=== PATIENT | male | born 1970 | race Hispanic/Latino ===

== ENCOUNTER → 2020-09-09 | Outpatient (CLI) | payer OTHER ==
[~2020-09-09] VITALS: Ht 162.6 cm; Wt 109.3 kg
[~2020-09-09] MED LIST: REGADENOSON 0.4 MG/5 ML PF SYG IVP SCH
== END | disposition home or self-care (01) ==
LOC: SHCH 07:59
PROVIDERS: ATTEND Internal Medicine Cardiovascular Disease
DX: R06.02 Shortness of breath (principal)
CPT/HCPCS: 78452; 93017; 96374; A9500 ×2

== ENCOUNTER → 2020-11-10 | Outpatient (CLI) | payer SELFPAY | END | disposition home or self-care (01) | LOC: OIH 10:49 | PROVIDERS: ATTEND Internal Medicine Cardiovascular Disease | DX: Z13.6 Encounter for screening for cardiovascular disorders (principal) | CPT/HCPCS: 75571 ==

== ENCOUNTER → 2024-07-02 | Outpatient (CLI) | payer BC ==
[2024-07-02 12:31] LABS: BASOPHILS # (AUTO) 0.12 K/uL (0.00-0.20); BASOPHILS % (AUTO) 1.5 % (0.0-5.0); EOSINOPHILS # (AUTO) 0.32 K/uL (0.00-0.70); EOSINOPHILS % (AUTO) 3.9 % (0.0-8.0); HEMATOCRIT 37.5 % (42-54); LYMPHOCYTES # (AUTO) 2.7 K/uL (1.0-4.8); LYMPHOCYTES % (AUTO) 33.7 % (21.0-51.0); MEAN CORPUSCULAR HEMOGLOBIN 29.9 pg (27.0-33.0); MEAN CORPUSCULAR HGB CONC 32.8 g/dL (32.0-36.0); MONOCYTES # (AUTO) 0.7 K/uL (0.1-1.0); MONOCYTES % (AUTO) 8.6 % (3.0-13.0); NEUTROPHILS # (AUTO) 4.1 K/uL (1.8-7.7); NEUTROPHILS % (AUTO) 49.8 % (40.0-77.0); PLATELET COUNT (AUTO) 372 K/uL (130-400); RED BLOOD CELL COUNT(AUTO) 4.12 MIL/uL (4.50-6.20); RED CELL DISTRIBUTION WIDTH 13.1 % (11.0-15.5); WHITE BLOOD COUNT (AUTO) 8.1 K/uL (4.8-10.8)
[2024-07-02 13:02] LABS: ALBUMIN 3.3 g/dL (3.5-5.0); BILIRUBIN,TOTAL 0.5 mg/dL (0.2-1.0); CREATININE 0.6 mg/dL (0.5-1.3); POTASSIUM 3.7 mmol/L (3.5-5.1); TOTAL PROTEIN, SERUM 7.4 g/dL (6.0-8.3)
== END | disposition home or self-care (01) ==
LOC: LAB 10:34
PROVIDERS: ATTEND Internal Medicine Cardiovascular Disease
DX: I10 Essential (primary) hypertension (principal); R35.0 Frequency of micturition; E78.2 Mixed hyperlipidemia
CPT/HCPCS: 36415; 80053; 80061; 84153; 85025

== ENCOUNTER → 2024-07-07 | Outpatient (CLI) | payer BC ==
[2024-07-07 16:28] LABS: % IRON SATURATION 19.5 % (30-44)
== END | disposition home or self-care (01) ==
LOC: LAB 11:22
PROVIDERS: ATTEND Internal Medicine Cardiovascular Disease
DX: E61.1 Iron deficiency (principal); D64.9 Anemia, unspecified; E78.5 Hyperlipidemia, unspecified; R07.9 Chest pain, unspecified; R06.09 Other forms of dyspnea
CPT/HCPCS: 36415; 82270; 82728; 83540; 83550

== ENCOUNTER → 2024-07-08 | Outpatient (CLI) | payer BC ==
[2024-07-08 16:15] LABS: BASOPHILS # (AUTO) 0.25 K/uL (0.00-0.20); BASOPHILS % (AUTO) 2.3 % (0.0-5.0); EOSINOPHILS # (AUTO) 0.36 K/uL (0.00-0.70); EOSINOPHILS % (AUTO) 3.3 % (0.0-8.0); IMMATURE GRANULOCYTE ABSOLUTE 0.04 K/uL (0-1); LYMPHOCYTES # (AUTO) 3.9 K/uL (1.0-4.8); LYMPHOCYTES % (AUTO) 35.4 % (21.0-51.0); MEAN CORPUSCULAR HEMOGLOBIN 29.7 pg (27.0-33.0); MONOCYTES # (AUTO) 0.7 K/uL (0.1-1.0); MONOCYTES % (AUTO) 6.3 % (3.0-13.0); NEUTROPHILS # (AUTO) 5.8 K/uL (1.8-7.7); NEUTROPHILS % (AUTO) 52.3 % (40.0-77.0); PLATELET COUNT (AUTO) 405 K/uL (130-400); RED BLOOD CELL COUNT(AUTO) 4.41 MIL/uL (4.50-6.20); RED CELL DISTRIBUTION WIDTH 13.3 % (11.0-15.5); WHITE BLOOD COUNT (AUTO) 11.1 K/uL (4.8-10.8)
== END | disposition home or self-care (01) ==
LOC: LAB 15:20
PROVIDERS: ATTEND Internal Medicine Cardiovascular Disease
DX: D64.9 Anemia, unspecified (principal)
CPT/HCPCS: 36415; 85025

== ENCOUNTER 2025-02-24 23:44 | Emergency (ER) | payer BC ==
[~2025-02-24] VITALS: Ht 162.6 cm; Wt 114.3 kg
[2025-02-25 00:25] LABS: CREATININE 1.0 mg/dL (0.5-1.3); GLOMERULAR FILTR. RATE CALC 88.0 mL/min (>90); GLUCOSE,RANDOM 105.0 mg/dL (70-105); SODIUM SERUM 141.0 mmol/L (136-145); UREA NITROGEN, BLOOD 18.0 mg/dL (7-18)
[2025-02-25] MEDS: 0.9%NACL 1000ML 1,000 ML IV ONE (00:26)
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
[2025-02-25 00:33] LABS: CREATINE KINASE, TOTAL 107.0 U/L (21-232)
[2025-02-25 00:36] LABS: INR 0.98 (0.85-1.15)
[2025-02-25 00:37] LABS: IMMATURE GRANULOCYTE ABSOLUTE 0.05 K/uL (0-1); NUCLEATED RED BLOOD CELLS 0.0 % (0.0-0.19); PLATELET COUNT (AUTO) 304 K/uL (130-400); RED BLOOD CELL COUNT(AUTO) 4.62 MIL/uL (4.50-6.20); RED CELL DISTRIBUTION WIDTH 13.4 % (11.0-15.5); WHITE BLOOD COUNT (AUTO) 10.3 K/uL (4.8-10.8)
[2025-02-25] MEDS ORDERED: IOHEXOL-350 75 ML VIAL IV ONE (01:50)
--- NOTE | 2025-02-25 02:34 | HMCIMG ---
EXAM: CR Chest, 1 view CLINICAL HISTORY: Shortness of breath. COMPARISON: None provided. FINDINGS: The lungs show no infiltrates or other acute findings. No pleural effusion or pneumothorax. Mildly enlarged cardiac silhouette. No acute osseous abnormality. IMPRESSION: Mildly enlarged cardiac silhouette could be secondary to AP projection. No acute infiltrate, effusion, or pneumothorax. /[place]
--- NOTE | 2025-02-25 03:33 | HMCIMG ---
EXAM: CTA examination of the chest CLINICAL HISTORY: Rule out an aneurysm. TECHNIQUE: Pre and post-contrast thin collimated axial CTA images of the chest were obtained, with sagittal and coronal reformatted images also submitted. CT scan is done according to ALARA (As Low as Reasonably Achievable). COMPARISON: None provided. FINDINGS: Symmetrical dependent atelectasis in the bilateral posterior basal lungs. No acute infiltrate, effusion, pneumothorax, or mass. No pericardial effusion. The heart size is within normal limits. Mild calcific atherosclerotic disease in the aortic arch. No thoracic aortic aneurysm is evident. The pulmonary artery is normal in caliber without a filling defect or pulmonary thromboembolism. Mildly prominent pericardial fat pad. No axillary, supraclavicular, or mediastinal lymphadenopathy. No focal thyroid abnormality. Limited views of the upper abdomen demonstrate mild fatty liver. No acute or suspicious osseous abnormality. IMPRESSION: No thoracic aortic aneurysm. No pulmonary thromboembolism. No acute cardiopulmonary process. Mildly prominent pericardial fat pad. /[place]
[2025-02-25 04:40] VITALS: BP 124/72; PULSE 90; RESP 14; TEMP 98; O2SAT 97
--- NOTE | 2025-02-25 04:42 | NUR ---
PATIENT REFUSED TO BE ADMITTED TO HOSPITAL, STATED HE WOULD RATHER GO HOME SINCE HE HAS DOGS AT HOME. ED MD AT BEDSIDE. PATIENT WAS EDUCATED ON AND VERBALIZED UNDERSTANDING OF THE RISKS AND CONSEQUENCES INVOLVED IN LEAVING THE HOSPITAL AT THIS TIME, INCLUDING , THE BENEFITS OF CONTINUED TREATMENT AND HOSPITILIZATION. AMA FORM SINGED BY PATIENT. PATIENT ADVICED TO FOLLOW UP WITH PCP, RETURN TO HOSPTIAL OR SEEK EMERGENCY HELP IF NEEDED.
--- NOTE | 2025-02-25 04:43 | NUR ---
Arslna grimm in EDM - 02/25/25 at 0452 by JONO PER ED MD, MEDICATONS NORFLEX AND KETOROLAC NOT BE ADMINISTERED ORDERED
[2025-02-25] MEDS: ORPHENADRINE 60MG/2ML IM ONE (04:50)
--- NOTE | 2025-02-25 06:59 | EKG ---
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
== END 2025-02-25 04:53 | disposition left against medical advice (07) ==
LOC: EDH 23:44
DX: M54.6 Pain in thoracic spine (principal); I95.9 Hypotension, unspecified; I10 Essential (primary) hypertension; Z79.01 Long term (current) use of anticoagulants
CPT/HCPCS: 99284; 82550; 84484; 80048; 85025; 85610; 85730; 36415; 96374; 71275; 71045; 96375; 93005; J7030; J2405; J2270 ×2; Q9967